=== PATIENT | female | born 1985 | race Caucasian/White ===

== ENCOUNTER 2017-01-31 02:11 | Emergency (ER) | payer OTHER ==
[2017-01-31] MEDS ORDERED: ADENOSINE INJ 6 MG/2 ML SYG IV ONE ×4 (02:23→02:34)
[2017-01-31] MEDS ORDERED: ATROPINE 1 MG/10 ML SYG IV ONE (02:23)
[2017-01-31] MEDS ORDERED: SODIUM CHLORIDE 0.9% 1000ML 1,000 ML ONE (02:26)
[2017-01-31] MEDS ORDERED: MIDAZOLAM INJ 5 MG/5 ML VIAL ONE (02:34)
[2017-01-31] MEDS ORDERED: MIDAZOLAM INJ 5 MG/5 ML VIAL IV ONE (02:36)
[2017-01-31] MEDS ORDERED: SODIUM CHLORIDE 0.9% (FLUSH) 10 ML SYG IV PRN (02:51)
--- NOTE | 2017-01-31 03:05 | ED.PDOC ---
History of Present Illness - General Chief Complaint: Cardiovascular Problem Stated Complaint: irregular heart rate Time Seen by Provider: 01/31/17 02:16 Source: patient, RN notes reviewed, Vital Signs reviewed Exam Limitations: no limitations - History of Present Illness Initial Comments: Patient comes in with palpitation and rapid heart rate. This started @ ~00:30. She felt funny and got sweaty. This has happened before and normally goes away on its own within 30 minutes but this time she laid down for 45 minutes w/o improvement. Heart rate was 240. No chest pain. No SOB. She takes Metoprolol 50mg BID. Timing/Duration: 1-3 hours Severity: severe Activities at Onset: activity - she was at work at the intermediate Prior Chest Pain/Cardiac Workup: other - HX of a. 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 Improving Factors: nothing Worsening Factors: movement Nitro Today/Relief: no nitro taken today Aspirin Treatment Today: no aspirin today Associated Symptoms: diaphoresis, weakness, other - near syncope Allergies/Adverse Reactions: Allergies Sulfa Drugs Adverse Reaction (Intermediate, Verified 01/31/17 02:50) Home Medications: Ambulatory Orders Metoprolol Tartrate 50 mg PO BID 01/31/17 Review of Systems - Review of Systems Constitutional: States: diaphoresis, weakness. Denies: chills, fever EENTM: States: no symptoms reported Respiratory: States: no symptoms reported Cardiology: States: see HPI, palpitations. Denies: chest pain Gastrointestinal/Abdominal: States: no symptoms reported. Denies: nausea Genitourinary: States: no symptoms reported Musculoskeletal: States: no symptoms reported Skin: States: no symptoms reported Neurological: States: no symptoms reported All other Systems: No Change from Baseline Past Medical History (General) - Patient Medical History Hx Congestive Heart Failure: No Hx Diabetes: No - Female History Hx Last Menstrual Period: 08/11/10 Family Medical History - Family History Mother Family History: Unknown Physical Exam - Physical Exam General Appearance: Alert, No apparent distress, Well Developed, Well Groomed, Well Hydrated, Well Nourished Neck: non-tender, full range of motion, supple, normal inspection Respiratory: lungs clear, normal breath sounds, no respiratory distress, no accessory muscle use Cardiovascular/Chest: no murmur, tachycardia Extremity: normal range of motion, non-tender, normal inspection Neurologic: alert, normal mood/affect, oriented x 3 Skin Exam: normal color, warm/dry Progress - Progress Progress: 01/31/17 03:08 Patient with A. Fib with RVR. No response to Adenosine 6mg, No response to Adenosine 12mg. Versed 5mg IV given then syncronized cardioversion with 100J. HR decreased to ~130. Stable in the 120's. Cardizem 5mg IV given w/o change. Another Cardizem 5mg IV given. - Results/Orders Results/Orders: Laboratory Tests 01/31/17 01/31/17 02:40 02:40 WBC 13.7 H RBC 5.43 H Hgb 14.8 Hct 44.1 MCV 81.2 MCH 27.2 MCHC 33.7 RDW 12.4 Plt Count 290 MPV 9.0 Absolute Neuts (auto) 10.70 H Absolute Lymphs (auto) 2.10 Absolute Monos (auto) 0.90 H Absolute Eos (auto) 0.00 Absolute Basos (auto) 0.00 Neutrophils % 77.7 Lymphocytes % 15.0 L Monocytes % 6.8 Eosinophils % 0.1 L Basophils % 0.4 PT 11.2 INR 0.990 PTT (SP) 29.6 D-Dimer, Quantitative < 230 Sodium 141 Potassium 3.7 Chloride 108 Carbon Dioxide 23 Anion Gap 13.7 BUN 10 Creatinine 0.47 L BUN/Creatinine Ratio 21.3 H Random Glucose 122 H Serum Osmolality 281.6 Calcium 10.1 Magnesium 1.8 Total Bilirubin 0.6 Direct Bilirubin 0.1 Indirect Bilirubin 0.5 AST 28 ALT 39 Alkaline Phosphatase 90 Creatine Kinase 59 CK-MB (CK-2) 1.1 CK-MB (CK-2) % Not Reportable Troponin I < 0.02 B-Natriuretic Peptide 47.5 Serum Total Protein 7.6 Albumin 4.4 Globulin Cancelled Albumin/Globulin Ratio Cancelled - EKG/XRAY/CT EKG: Sinus, Fibrillation, RVR Comments: Rate 196 - Additional EKG/XRAY/Consults EKG #2: Sinus, Tachy, no ST T wave changes Comments: Rate 128 after Adenosine 6mg, 12mg and Cardioversion w/ 100J Departure - Departure Clinical Impression: Atrial fibrillation with rapid ventricular response Time of Disposition: 04:15 Disposition: Transfer to Hospital Condition: Fair Departure Forms: ED Discharge - Pt. Copy, Patient Portal Self Enrollment Home Medications: Ambulatory Orders Metoprolol Tartrate 50 mg PO BID 01/31/17 Critical Care Note - Critical Care Note Total Time (mins): 45 Comments: At bedside during treatment for A. Fib with RVR. Transfer to Outside Facility - Transfer Information Accepting Provider:: Dr. Laurie Talavera Accepting Facility: [facility] Reason for Transfer: required specialist not available
[2017-01-31] MEDS ORDERED: SODIUM CHLORIDE 0.9% 1000ML 1,000 ML IVS ONE (03:25)
[2017-01-31 04:15] VITALS: O2SAT 99
[2017-01-31 04:19] VITALS: BP 143/89; TEMP 97.9
--- NOTE | 2017-01-31 06:31 | RAD ---
EXAM: Single view chest. INDICATION: Irregular heartbeat. COMPARISON: Chest x-ray: 11/19/2008. FINDINGS: Cardiac silhouette: Unremarkable. Jenni: Unremarkable. Lobar consolidation: None. Pleural effusion: None. Pneumothorax: None. Other: None. Bones: Unremarkable. Other: None. IMPRESSION: 1. No acute cardiopulmonary process. Electronically signed by: Kwaku Loredo MD 01/31/2017 6:30 AM CDT Workstation: [id number]
== END 2017-01-31 04:55 | disposition short-term general hospital (02) ==
LOC: ER 02:11
DX: I48.91 Unspecified atrial fibrillation (principal); Z88.2 Allergy status to sulfonamides
CPT/HCPCS: 36415; 71010; 80048; 80076; 82550; 82553; 83880; 84484; 85025; 85379; 85610; 85730; 93005; 94760; J0153; J2250; J7030

== ENCOUNTER 2018-02-22 20:20 | Emergency (ER) | payer OTHER ==
--- NOTE | 2018-02-22 22:40 | ED.PDOC ---
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 Timing/Duration: 4-6 hours Severity: moderate Location: other - none Activities at Onset: other - see hpi Allergies/Adverse Reactions: Allergies Sulfa Drugs Adverse Reaction (Intermediate, Verified 01/31/17 02:50) Home Medications: Ambulatory Orders Metoprolol Tartrate 50 mg PO BID 01/31/17 Cymbalta 02/22/18 Geodon 02/22/18 HYDROcodone 5MG/APAP 325MG 02/22/18 Lyrica 02/22/18 Methimazole 5 mg PO TID #60 tab 02/22/18 Methimazole [Methimazole] 02/22/18 Metoprolol Succinate [Metoprolol Succinate ER] 100 mg PO BID #30 tab 02/22/18 Review of Systems - Review of Systems Constitutional: States: no symptoms reported EENTM: States: no symptoms reported Respiratory: States: no symptoms reported Cardiology: States: no symptoms reported Gastrointestinal/Abdominal: States: no symptoms reported Genitourinary: States: no symptoms reported Musculoskeletal: States: no symptoms reported Skin: States: no symptoms reported Neurological: States: no symptoms reported Endocrine: States: no symptoms reported Past Medical History (General) - Patient Medical History Hx Seizures: No Hx Stroke: No Hx Dementia: No Hx Asthma: No Hx of COPD: No Hx Cardiac Disorders: Yes Hx Congestive Heart Failure: No Hx Pacemaker: No Hx Hypertension: Yes Hx Thyroid Disease: Yes - hyperthyroidism Hx Diabetes: No Hx Gastroesophageal Reflux: No Hx Renal Disease: No Hx Cancer: No Hx of HIV: No Hx Hepatitis C: No Hx MRSA: No Surgical History: cholecystectomy - Vaccination History Hx Tetanus, Diphtheria Vaccination: Yes Hx Influenza Vaccination: Yes Hx Pneumococcal Vaccination: No - Social History Hx Tobacco Use: No Hx Chewing Tobacco Use: No Hx Alcohol Use: No Hx Substance Use: No Hx Substance Use Treatment: No Hx Depression: No Hx Physical Abuse: No Hx Emotional Abuse: No Hx Suspected Abuse: No - Female History Patient is a Female of Child Bearing Age (10 -59 yrs old): Yes Hx Last Menstrual Period: 08/11/10 Patient : No - Triage Comment ED Triage Comment: Out of meds for a week. Took metoprolol this afternoon, restarted. Family Medical History - Family History Mother Family History: Unknown Hx Family Hypertension: Yes - parents Physical Exam - Physical Exam General Appearance: Alert, Comfortable, No apparent distress Eyes, Ears, Nose, Throat Exam: normal ENT inspection, other - no exopthalmos Neck: non-tender, supple, thyromegaly - right thyroid gland Respiratory: lungs clear, normal breath sounds, no respiratory distress Cardiovascular/Chest: normal peripheral pulses, regular rate, rhythm, no murmur Peripheral Pulses: radial,right: 2+, radial,left: 2+ Gastrointestinal/Abdominal: non tender, soft Extremity: no pedal edema, no calf tenderness Neurologic: alert, oriented x 3 Skin Exam: normal color, warm/dry Lymphatic: no adenopathy Progress - Progress Progress: 02/22/18 23:03 Vital Signs - 8 hr 02/22/18 20:36 Temperature 98.9 F Pulse Rate [ 98 H Right] Respiratory 16 Rate Blood Pressure 149/99 [Left Arm] O2 Sat by Pulse 98 Oximetry Departure - Departure Clinical Impression: Rebound hypertension, Medication refill Hypertension Qualifiers: Hypertension type: unspecified Qualified Code(s): I10 - Essential (primary) hypertension Time of Disposition: 23:04 Disposition: Discharge to Home or Self Care Condition: Fair Departure Forms: ED Discharge - Pt. Copy, Patient Portal Self Enrollment Instructions: DI for High Blood Pressure, DASH Diet, Hyperthyroidism ( Overactive Thyroid), Thyroid Nodules, Hyperthyroidism (Overactive Thyroid) (DC) Prescriptions: Methimazole 5 mg PO TID #60 tab Metoprolol Succinate [Metoprolol Succinate ER] 100 mg PO BID #30 tab Home Medications: Ambulatory Orders Metoprolol Tartrate 50 mg PO BID 01/31/17 Cymbalta 02/22/18 Geodon 02/22/18 HYDROcodone 5MG/APAP 325MG 09/11/18 Lyrica 02/22/18 Methimazole 5 mg PO TID #60 tab 02/22/18 Methimazole [Methimazole] 02/22/18 Metoprolol Succinate [Metoprolol Succinate ER] 100 mg PO BID #30 tab 02/22/18 Additional Instructions: Make appointment with primary Md;Dont let your prescription medication ran out
[2018-02-22 23:45] VITALS: BP 143/86; TEMP 97.4; O2SAT 99
== END 2018-02-22 23:35 | disposition home or self-care (01) ==
LOC: ER 20:20
DX: Z76.0 Encounter for issue of repeat prescription (principal); I10 Essential (primary) hypertension; E05.90 Thyrotoxicosis, unspecified without thyrotoxic crisis or storm; Z79.899 Other long term (current) drug therapy; Z88.2 Allergy status to sulfonamides

== ENCOUNTER 2018-05-13 16:50 | Emergency (ER) | payer OTHER ==
[2018-05-13 17:07] VITALS: TEMP 97.4
--- NOTE | 2018-05-13 17:36 | ED.PDOC ---
History of Present Illness - General Chief Complaint: General Stated Complaint: drowsy Time Seen by Provider: 05/13/18 17:33 Source: patient Exam Limitations: no limitations - History of Present Illness Initial Comments: PT WAS PULLED OVER BY PD. APPARENTLY WAS SENT HOME FROM WORK B/C SHE WASNT ACTING NORMALLY. PD NOTICED PT WAS DRIVING IRREGULARLY AND PULLED HER OVER. SHE WAS TRANSPORTED HERE FOR EVALUATION. SHE STATES SHE HAS NOT TAKEN ANY EXTRA MEDICATION BUT C/O NOT FEELING WELL. VERY NON SPECIFIC COMPLAINTS. Timing/Duration: other - TODAY Severity: moderate Improving Factors: nothing Worsening Factors: nothing Associated Symptoms: denies symptoms Allergies/Adverse Reactions: Allergies Sulfa Drugs Adverse Reaction (Intermediate, Verified 01/31/17 02:50) Home Medications: Ambulatory Orders Duloxetine HCl 60 mg PO BID 02/22/18 HYDROcodone 10MG/APAP 325MG [[place] 10/325] 1 ea PO Q6HR PRN 02/22/18 Metoprolol Succinate [Metoprolol Succinate ER] 100 mg PO BID #30 tab 02/22/18 Pregabalin [Lyrica] 100 mg PO TID 02/22/18 Ziprasidone HCl 40 mg PO BID 02/22/18 Alprazolam [Xanax] 1 mg PO BID PRN 05/13/18 Baclofen 10 mg PO BID PRN 05/13/18 Cephalexin 500 mg PO QID 05/13/18 Cholecalciferol [Vitamin D-3] 5,000 unit PO DAILY 05/13/18 Cyclobenzaprine HCl 10 mg PO BID PRN 05/13/18 Furosemide 40 mg PO DAILY 05/13/18 Levothyroxine Sodium 150 mcg PO DAILY 05/13/18 Naproxen Sodium 440 mg PO Q12H PRN 05/13/18 Omeprazole 20 mg PO DAILY 05/13/18 Potassium Chloride [Micro-K] 10 meq PO TID 05/13/18 Promethazine HCl 25 mg PO Q8HR PRN 05/13/18 Spironolactone 25 mg PO DAILY 05/13/18 Sumatriptan Succinate 50 mg PO DAILY PRN 05/13/18 Triamterene & Hydrochlorothiaz [Triamterene/Hydrochloroth 37.5-25 mg] 1 ea PO DAILY 05/13/18 diphenhydrAMINE HCL [Benadryl] 25 mg PO Q6H PRN 05/13/18 tiZANidine [Zanaflex] 4 mg PO BEDTIME 05/13/18 Review of Systems - Review of Systems Constitutional: Denies: chills, fever EENTM: States: no symptoms reported Respiratory: Denies: cough, short of breath, wheezing Cardiology: Denies: chest pain, palpitations Gastrointestinal/Abdominal: Denies: abdominal pain, nausea, vomiting Genitourinary: Denies: dysuria, frequency, hematuria Musculoskeletal: States: no symptoms reported Skin: States: no symptoms reported Neurological: States: no symptoms reported Hematologic/Lymphatic: States: no symptoms reported Past Medical History (General) - Patient Medical History Hx Seizures: No Hx Stroke: No Hx Dementia: No Hx Asthma: No Hx of COPD: No Hx Cardiac Disorders: Yes Hx Congestive Heart Failure: No Hx Pacemaker: No Hx Hypertension: Yes Hx Thyroid Disease: Yes - hyperthyroidism Hx Diabetes: No Hx Gastroesophageal Reflux: No Hx Renal Disease: No Hx Cancer: No Hx of HIV: No Hx Hepatitis C: No Hx MRSA: No Hx Other PMH: Yes - BIPOLAR D/O Surgical History: cholecystectomy, other - Vaccination History Hx Tetanus, Diphtheria Vaccination: Yes Hx Influenza Vaccination: Yes Hx Pneumococcal Vaccination: No - Social History Hx Tobacco Use: No Hx Chewing Tobacco Use: No Hx Alcohol Use: No Hx Substance Use: No Hx Substance Use Treatment: No Hx Depression: No Hx Physical Abuse: No Hx Emotional Abuse: No Hx Suspected Abuse: No - Female History Hx Last Menstrual Period: 08/11/10 Patient : No Family Medical History - Family History Mother Family History: Unknown Hx Family Hypertension: Yes - parents Physical Exam - Physical Exam General Appearance: Alert, No apparent distress, Obese Eye Exam: bilateral normal Ears, Nose, Throat: hearing grossly normal, normal ENT inspection Neck: non-tender, full range of motion, supple Respiratory: lungs clear, no respiratory distress Cardiovascular/Chest: regular rate, rhythm, no murmur Gastrointestinal/Abdominal: non tender, soft, no organomegaly Back Exam: normal inspection, no CVA tenderness Extremity: normal range of motion, non-tender Neurologic: no motor/sensory deficits, other - SPEECH THICK SOMEWHAT SLURRED, BUT ORGANIZED Skin Exam: normal color, warm/dry Lymphatic: no adenopathy Progress - Progress Progress: 05/13/18 18:55 SLEEPING, NAD, VSS. D/W PT FEEL IS A MEDICATION ISSUE AND SHE NEEDS TO DISCUSS WITH HER DR. SHE AGREES. SHE IS ALERT AND AWAKENS EASILY. Departure - Departure Clinical Impression: Medication care plan discussed with patient, Bipolar 1 disorder, Anxiety Time of Disposition: 19:00 Disposition: Discharge to Home or Self Care Condition: Good Departure Forms: ED Discharge - Pt. Copy, Patient Portal Self Enrollment Instructions: Side Effects From Medicines, Taking Narcotics Safely Home Medications: Ambulatory Orders Duloxetine HCl 60 mg PO BID 02/22/18 HYDROcodone 10MG/APAP 325MG [[place] 10/325] 1 ea PO Q6HR PRN 02/22/18 Metoprolol Succinate [Metoprolol Succinate ER] 100 mg PO BID #30 tab 02/22/18 Pregabalin [Lyrica] 100 mg PO TID 02/22/18 Ziprasidone HCl 40 mg PO BID 02/22/18 Alprazolam [Xanax] 1 mg PO BID PRN 05/13/18 Baclofen 10 mg PO BID PRN 05/13/18 Cephalexin 500 mg PO QID 05/13/18 Cholecalciferol [Vitamin D-3] 5,000 unit PO DAILY 05/13/18 Cyclobenzaprine HCl 10 mg PO BID PRN 05/13/18 Furosemide 40 mg PO DAILY 05/13/18 Levothyroxine Sodium 150 mcg PO DAILY 05/13/18 Naproxen Sodium 440 mg PO Q12H PRN 05/13/18 Omeprazole 20 mg PO DAILY 05/13/18 Potassium Chloride [Micro-K] 10 meq PO TID 05/13/18 Promethazine HCl 25 mg PO Q8HR PRN 05/13/18 Spironolactone 25 mg PO DAILY 05/13/18 Sumatriptan Succinate 50 mg PO DAILY PRN 05/13/18 Triamterene & Hydrochlorothiaz [Triamterene/Hydrochloroth 37.5-25 mg] 1 ea PO DAILY 05/13/18 diphenhydrAMINE HCL [Benadryl] 25 mg PO Q6H PRN 05/13/18 tiZANidine [Zanaflex] 4 mg PO BEDTIME 05/13/18
--- NOTE | 2018-05-13 18:11 | CT ---
PROCEDURE: CT Head Without Intravenous Contrast CLINICAL INDICATION: The patient is 32 years old and is Female; ALTERED SENSORIUM TECHNIQUE: Axial computed tomography images of the head/brain without intravenous contrast. Sagittal and coronal reformatted images were created and reviewed. COMPARISON: No relevant prior studies available. FINDINGS: BRAIN: Low lying cerebral tonsils by approximately 7 mm consistent with Chiari I malformation. No mass lesion. No hemorrhage. No significant white matter disease. VENTRICLES: Normal. No ventriculomegaly. BONES/JOINTS: Normal. No acute fracture. SOFT TISSUES: Normal. SINUSES: Minimal mucosal thickening left frontal sinus. MASTOID AIR CELLS: Unremarkable as visualized. No mastoid effusion. IMPRESSION: 1. No acute intracranial findings. 2. Low lying cerebral tonsils by approximately 7 mm consistent with Chiari I malformation. MRI may be obtained for further evaluation. Electronically signed by: Adalberto Pandey MD 05/13/2018 6:10 PM [facility]
[2018-05-13] MEDS: SODIUM CHLORIDE 0.9% 500ML 500 ML IVS ONE (18:44)
[2018-05-13 19:52] VITALS: BP 135/100; O2SAT 98
== END 2018-05-13 19:52 | disposition home or self-care (01) ==
LOC: ER 16:50
DX: F31.9 Bipolar disorder, unspecified (principal); F41.9 Anxiety disorder, unspecified; E05.90 Thyrotoxicosis, unspecified without thyrotoxic crisis or storm; Z79.899 Other long term (current) drug therapy; Z88.2 Allergy status to sulfonamides
CPT/HCPCS: 36415; 70450; 80053; 80307; 81001; 85025; J7040

== ENCOUNTER 2018-05-22 02:43 | Emergency (ER) | payer SELFPAY ==
[2018-05-22 02:58] VITALS: BP 124/84; TEMP 96.5; O2SAT 97
--- NOTE | 2018-05-22 03:07 | ED.PDOC ---
History of Present Illness - General Chief Complaint: Blood Pressure Problem Stated Complaint: elevated BP,tired Time Seen by Provider: 05/22/18 03:04 Source: patient Exam Limitations: no limitations - History of Present Illness Initial Comments: patient comes in today for elevation of blood pressure. Patient is [employer] and she states that when she is active she starts to feel "wobbly". They checked her pressure at work and it was 159/110. Patient currently has no chest pain, shortneeath, nausea, or vision change. She has known high blood pressure and takes metoprolol for it. She took an extra one this morning. Currently she is asymptomatic. Timing/Duration: 24 hours Severity: mild Improving Factors: rest Worsening Factors: movement Associated Symptoms: denies symptoms Allergies/Adverse Reactions: Allergies Sulfa Drugs Adverse Reaction (Intermediate, Verified 01/31/17 02:50) Home Medications: Ambulatory Orders Duloxetine HCl 60 mg PO BID 02/22/18 HYDROcodone 10MG/APAP 325MG [[place] 10/325] 1 ea PO Q6HR PRN 02/22/18 Metoprolol Succinate [Metoprolol Succinate ER] 100 mg PO BID #30 tab 02/22/18 Pregabalin [Lyrica] 100 mg PO TID 02/22/18 Ziprasidone HCl 40 mg PO BID 02/22/18 Alprazolam [Xanax] 1 mg PO BID PRN 05/13/18 Baclofen 10 mg PO BID PRN 05/13/18 Cephalexin 500 mg PO QID 05/13/18 Cholecalciferol [Vitamin D-3] 5,000 unit PO DAILY 05/13/18 Cyclobenzaprine HCl 10 mg PO BID PRN 05/13/18 Furosemide 40 mg PO DAILY 05/13/18 Levothyroxine Sodium 150 mcg PO DAILY 05/13/18 Naproxen Sodium 440 mg PO Q12H PRN 05/13/18 Omeprazole 20 mg PO DAILY 05/13/18 Potassium Chloride [Micro-K] 10 meq PO TID 05/13/18 Promethazine HCl 25 mg PO Q8HR PRN 05/13/18 Spironolactone 25 mg PO DAILY 05/13/18 Sumatriptan Succinate 50 mg PO DAILY PRN 05/13/18 Triamterene & Hydrochlorothiaz [Triamterene/Hydrochloroth 37.5-25 mg] 1 ea PO DAILY 05/13/18 diphenhydrAMINE HCL [Benadryl] 25 mg PO Q6H PRN 05/13/18 tiZANidine [Zanaflex] 4 mg PO BEDTIME 05/13/18 Review of Systems - Review of Systems Constitutional: States: no symptoms reported. Denies: chills, fever EENTM: States: no symptoms reported. Denies: blurred vision Respiratory: States: no symptoms reported. Denies: cough, short of breath Cardiology: States: no symptoms reported. Denies: chest pain, edema, palpitations Gastrointestinal/Abdominal: States: no symptoms reported. Denies: abdominal pain, nausea, vomiting Past Medical History (General) - Patient Medical History Hx Seizures: No Hx Stroke: No Hx Dementia: No Hx Asthma: No Hx of COPD: No Hx Cardiac Disorders: Yes Hx Congestive Heart Failure: No Hx Pacemaker: No Hx Hypertension: Yes Hx Thyroid Disease: Yes - hyperthyroidism Hx Diabetes: No Hx Gastroesophageal Reflux: No Hx Renal Disease: No Hx Cancer: No Hx of HIV: No Hx Hepatitis C: No Hx MRSA: No - Vaccination History Hx Tetanus, Diphtheria Vaccination: Yes Hx Influenza Vaccination: Yes Hx Pneumococcal Vaccination: No - Social History Hx Tobacco Use: No Hx Chewing Tobacco Use: No Hx Alcohol Use: No Hx Substance Use: No Hx Substance Use Treatment: No Hx Depression: No Hx Physical Abuse: No Hx Emotional Abuse: No Hx Suspected Abuse: No - Female History Patient is a Female of Child Bearing Age (10 -59 yrs old): Yes Hx Last Menstrual Period: 08/11/10 Patient : No Family Medical History - Family History Mother Family History: Unknown Hx Family Hypertension: Yes - parents Physical Exam - Physical Exam General Appearance: Alert, No apparent distress Eye Exam: bilateral normal Ears, Nose, Throat: hearing grossly normal, normal ENT inspection, normal pharynx Neck: non-tender, full range of motion, supple, normal inspection Respiratory: chest non-tender, lungs clear, normal breath sounds, no respiratory distress Cardiovascular/Chest: normal peripheral pulses, regular rate, rhythm, no edema, no murmur Gastrointestinal/Abdominal: normal bowel sounds, non tender, soft Neurologic: no motor/sensory deficits, alert, oriented x 3 Progress - Progress Progress: 05/22/18 03:08 patient currently has normal blood pressure and is asymptomatic. Will give her a work excuse for today and tomorrow. She is to follow up with PCP to discuss labile blood pressure on Wednesday. Return to ER for chest pain, vision change, BP >180 syst or >100 diastolic or high blood pressure with symptoms. Departure - Departure Clinical Impression: Intermittent hypertension Disposition: Discharge to Home or Self Care Condition: Good Departure Forms: ED Discharge - Pt. Copy, Patient Portal Self Enrollment Referrals: TISH STEPHENS [Primary Care Provider] - 1-2 Weeks Home Medications: Ambulatory Orders Duloxetine HCl 60 mg PO BID 02/22/18 HYDROcodone 10MG/APAP 325MG [[place] ] 1 ea PO Q6HR PRN 02/22/18 Metoprolol Succinate [Metoprolol Succinate ER] 100 mg PO BID #30 tab 02/22/18 Pregabalin [Lyrica] 100 mg PO TID 02/22/18 Ziprasidone HCl 40 mg PO BID 02/22/18 Alprazolam [Xanax] 1 mg PO BID PRN 05/13/18 Baclofen 10 mg PO BID PRN 05/13/18 Cephalexin 500 mg PO QID 05/13/18 Cholecalciferol [Vitamin D-3] 5,000 unit PO DAILY 05/13/18 Cyclobenzaprine HCl 10 mg PO BID PRN 05/13/18 Furosemide 40 mg PO DAILY 05/13/18 Levothyroxine Sodium 150 mcg PO DAILY 05/13/18 Naproxen Sodium 440 mg PO Q12H PRN 05/13/18 Omeprazole 20 mg PO DAILY 05/13/18 Potassium Chloride [Micro-K] 10 meq PO TID 05/13/18 Promethazine HCl 25 mg PO Q8HR PRN 05/13/18 Spironolactone 25 mg PO DAILY 05/13/18 Sumatriptan Succinate 50 mg PO DAILY PRN 05/13/18 Triamterene & Hydrochlorothiaz [Triamterene/Hydrochloroth 37.5-25 mg] 1 ea PO DAILY 05/13/18 diphenhydrAMINE HCL [Benadryl] 25 mg PO Q6H PRN 05/13/18 tiZANidine [Zanaflex] 4 mg PO BEDTIME 05/13/18 Additional Instructions: work excuse for today and tomorrow. She is to follow up with PCP to discuss labile blood pressure on Wednesday. Return to ER for chest pain, vision change, BP >180 syst or >100 diastolic or high blood pressure with symptoms.
== END 2018-05-22 03:19 | disposition home or self-care (01) ==
LOC: ER 02:43
DX: I10 Essential (primary) hypertension (principal); I51.9 Heart disease, unspecified; E05.90 Thyrotoxicosis, unspecified without thyrotoxic crisis or storm; Z88.2 Allergy status to sulfonamides; Z79.899 Other long term (current) drug therapy

== ENCOUNTER 2018-06-05 20:36 | Emergency (ER) | payer SELFPAY ==
[2018-06-05 20:51] VITALS: TEMP 98.1; O2SAT 99
--- NOTE | 2018-06-05 21:13 | ED.PDOC ---
History of Present Illness - General Chief Complaint: Blood Pressure Problem Stated Complaint: elevated blood pressure Time Seen by Provider: 06/05/18 20:44 Source: patient Exam Limitations: no limitations - History of Present Illness Initial Comments: Corinna Phan 32 y/o female stated took her blood pressure at work and BP systolic 105's was advised to come here and get checked.Stated she took her anihypertensive medication one hour prior to coming here.No headache,no blurry vision,no chest pains Timing/Duration: 1-3 hours Severity: moderate Improving Factors: nothing Worsening Factors: nothing Associated Symptoms: denies symptoms Allergies/Adverse Reactions: Allergies Sulfa Drugs Adverse Reaction (Intermediate, Verified 01/31/17 02:50) Home Medications: Ambulatory Orders Duloxetine HCl 60 mg PO BID 02/22/18 HYDROcodone 10MG/APAP 325MG [[place] 10325] 1 ea PO Q6HR PRN 02/22/18 Metoprolol Succinate [Metoprolol Succinate ER] 100 mg PO BID #30 tab 02/22/18 Pregabalin [Lyrica] 100 mg PO TID 02/22/18 Ziprasidone HCl 40 mg PO BID 02/22/18 Alprazolam [Xanax] 1 mg PO BID PRN 05/13/18 Baclofen 10 mg PO BID PRN 05/13/18 Cholecalciferol [Vitamin D-3] 5,000 unit PO DAILY 05/13/18 Cyclobenzaprine HCl 10 mg PO BID PRN 05/13/18 Furosemide 40 mg PO DAILY 05/13/18 Levothyroxine Sodium 150 mcg PO DAILY 05/13/18 Naproxen Sodium 440 mg PO Q12H PRN 05/13/18 Omeprazole 20 mg PO DAILY 05/13/18 Potassium Chloride [Micro-K] 10 meq PO TID 05/13/18 Promethazine HCl 25 mg PO Q8HR PRN 05/13/18 Spironolactone 25 mg PO DAILY 05/13/18 Sumatriptan Succinate 50 mg PO DAILY PRN 05/13/18 diphenhydrAMINE HCL [Benadryl] 25 mg PO Q6H PRN 05/13/18 tiZANidine [Zanaflex] 4 mg PO BEDTIME 05/13/18 Review of Systems - Review of Systems Constitutional: States: no symptoms reported EENTM: States: no symptoms reported Respiratory: States: no symptoms reported Cardiology: States: no symptoms reported Gastrointestinal/Abdominal: States: no symptoms reported Genitourinary: States: no symptoms reported Musculoskeletal: States: no symptoms reported Skin: States: no symptoms reported Neurological: States: no symptoms reported Past Medical History (General) - Patient Medical History Hx Seizures: No Hx Stroke: No Hx Dementia: No Hx Asthma: No Hx of COPD: No Hx Cardiac Disorders: Yes Hx Congestive Heart Failure: No Hx Pacemaker: No Hx Hypertension: Yes Hx Thyroid Disease: Yes Hx Diabetes: No Hx Gastroesophageal Reflux: No Hx Renal Disease: No Hx Cancer: No Hx of HIV: No Hx Hepatitis C: No Hx MRSA: No Surgical History: cholecystectomy - Vaccination History Hx Tetanus, Diphtheria Vaccination: Yes Hx Influenza Vaccination: Yes Hx Pneumococcal Vaccination: No - Social History Hx Tobacco Use: No Hx Chewing Tobacco Use: No Hx Alcohol Use: No Hx Substance Use: No Hx Substance Use Treatment: No Hx Depression: No Hx Physical Abuse: No Hx Emotional Abuse: No Hx Suspected Abuse: No - Activities of Daily Living Patient Lives Alone: No - Female History Patient is a Female of Child Bearing Age (10 -59 yrs old): Yes Hx Last Menstrual Period: 05/20/18 Patient : No Family Medical History - Family History Mother Family History: Unknown Hx Family Hypertension: Yes - parents Physical Exam - Physical Exam General Appearance: Alert, Comfortable, No apparent distress Eye Exam: bilateral normal Ears, Nose, Throat: hearing grossly normal, normal ENT inspection Neck: non-tender, normal inspection Respiratory: chest non-tender, lungs clear, normal breath sounds Cardiovascular/Chest: normal peripheral pulses, regular rate, rhythm, no murmur Peripheral Pulses: radial,right: 2+, radial,left: 2+ Gastrointestinal/Abdominal: non tender, soft Back Exam: no CVA tenderness, no vertebral tenderness Extremity: no pedal edema, no calf tenderness Neurologic: alert, oriented x 3 Skin Exam: normal color, warm/dry Progress - Progress Progress: 06/05/18 21:17 Vital Signs - 24 hr 06/05/18 20:47 Temperature 98.1 F Pulse Rate [ 90 Right] Respiratory 18 Rate Blood Pressure 158/106 [Left Arm] O2 Sat by Pulse 99 Oximetry Blood pressure re checked BP-127/79,Sao2-99 %;Hr 91 Departure - Departure Clinical Impression: Hypertension Qualifiers: Hypertension type: unspecified Qualified Code(s): I10 - Essential (primary) hypertension Time of Disposition: 21:19 Disposition: Discharge to Home or Self Care Condition: Fair Departure Forms: ED Discharge - Pt. Copy, Patient Portal Self Enrollment Instructions: DI for High Blood Pressure, DASH Diet Referrals: TISH STEPHENS [Primary Care Provider] - 1-2 Weeks Home Medications: Ambulatory Orders Duloxetine HCl 60 mg PO BID 02/22/18 HYDROcodone 10MG/APAP 325MG [[place] 10/325] 1 ea PO Q6HR PRN 02/22/18 Metoprolol Succinate [Metoprolol Succinate ER] 100 mg PO BID #30 tab 02/22/18 Pregabalin [Lyrica] 100 mg PO TID 02/22/18 Ziprasidone HCl 40 mg PO BID 02/22/18 Alprazolam [Xanax] 1 mg PO BID PRN 05/13/18 Baclofen 10 mg PO BID PRN 05/13/18 Cholecalciferol [Vitamin D-3] 5,000 unit PO DAILY 05/13/18 Cyclobenzaprine HCl 10 mg PO BID PRN 05/13/18 Furosemide 40 mg PO DAILY 05/13/18 Levothyroxine Sodium 150 mcg PO DAILY 05/13/18 Naproxen Sodium 440 mg PO Q12H PRN 05/13/18 Omeprazole 20 mg PO DAILY 05/13/18 Potassium Chloride [Micro-K] 10 meq PO TID 05/13/18 Promethazine HCl 25 mg PO Q8HR PRN 05/13/18 Spironolactone 25 mg PO DAILY 05/13/18 Sumatriptan Succinate 50 mg PO DAILY PRN 05/13/18 diphenhydrAMINE HCL [Benadryl] 25 mg PO Q6H PRN 05/13/18 tiZANidine [Zanaflex] 4 mg PO BEDTIME 05/13/18 Additional Instructions: Follow up with primary Md 08 Jun 2018 as needed
[2018-06-05 21:28] VITALS: BP 127/79
== END 2018-06-05 21:29 | disposition home or self-care (01) ==
LOC: ER 20:36
DX: I10 Essential (primary) hypertension (principal); E07.9 Disorder of thyroid, unspecified; I51.9 Heart disease, unspecified; Z79.899 Other long term (current) drug therapy; Z88.2 Allergy status to sulfonamides

== ENCOUNTER 2018-09-10 18:55 | Emergency (ER) | payer SELFPAY ==
[2018-09-10] MEDS ORDERED: SODIUM CHLORIDE 0.9% 500ML 500 ML IVS ONE (19:10)
--- NOTE | 2018-09-10 19:11 | ED.PDOC ---
History of Present Illness - General Chief Complaint: Blood Pressure Problem Stated Complaint: low blood pressure,nasal congestion Time Seen by Provider: 09/10/18 19:09 Source: patient Exam Limitations: no limitations - History of Present Illness Initial Comments: Corinna Phan 32 y/o female came to ER stating her blood pressure had been low BP110 /70 after it was checked at worked and also felt lightheaded no blurry vision,no chest pains or headache.Also has nasal congestion taking Tiffani.Had been under lots of stress recently also with child custody problem with ex husb and.She take Metoprolol XL for her HBP. Timing/Duration: 1-3 hours Severity: moderate Improving Factors: nothing Worsening Factors: nothing Associated Symptoms: denies symptoms, other - see hpi Allergies/Adverse Reactions: Allergies Sulfa Drugs Adverse Reaction (Intermediate, Verified 01/31/17 02:50) Home Medications: Ambulatory Orders Duloxetine HCl 60 mg PO BID 02/22/18 HYDROcodone 10MG/APAP 325MG [[place] 10/325] 1 ea PO Q6HR PRN 02/22/18 Metoprolol Succinate [Metoprolol Succinate ER] 100 mg PO BID #30 tab 02/22/18 Pregabalin [Lyrica] 100 mg PO TID 02/22/18 Ziprasidone HCl 40 mg PO BID 02/22/18 Alprazolam [Xanax] 1 mg PO BID PRN 05/13/18 Baclofen 10 mg PO BID PRN 05/13/18 Cholecalciferol [Vitamin D-3] 5,000 unit PO DAILY 05/13/18 Cyclobenzaprine HCl [Cyclobenzaprine Hydrochlo] 10 mg PO BID PRN 05/13/18 Furosemide 40 mg PO DAILY 05/13/18 Levothyroxine Sodium 150 mcg PO DAILY 05/13/18 Naproxen Sodium 440 mg PO Q12H PRN 05/13/18 Omeprazole 20 mg PO DAILY 05/13/18 Potassium Chloride [Micro-K] 10 meq PO TID 05/13/18 Promethazine HCl 25 mg PO Q8HR PRN 05/13/18 Spironolactone 25 mg PO DAILY 05/13/18 Sumatriptan Succinate 50 mg PO DAILY PRN 05/13/18 diphenhydrAMINE HCL [Benadryl] 25 mg PO Q6H PRN 05/13/18 tiZANidine [Zanaflex] 4 mg PO BEDTIME 05/13/18 Review of Systems - Review of Systems Constitutional: States: no symptoms reported EENTM: States: no symptoms reported Respiratory: States: no symptoms reported Cardiology: States: no symptoms reported Gastrointestinal/Abdominal: States: no symptoms reported Genitourinary: States: no symptoms reported Musculoskeletal: States: no symptoms reported Skin: States: no symptoms reported Neurological: States: no symptoms reported Endocrine: States: no symptoms reported All other Systems: Reviewed and Negative, No Change from Baseline Past Medical History (General) - Patient Medical History Hx Seizures: No Hx Stroke: No Hx Dementia: No Hx Asthma: No Hx of COPD: No Hx Cardiac Disorders: Yes Hx Congestive Heart Failure: No Hx Pacemaker: No Hx Hypertension: Yes Hx Thyroid Disease: Yes Hx Diabetes: No Hx Gastroesophageal Reflux: No Hx Renal Disease: No Hx Cancer: No Hx of HIV: No Hx Hepatitis C: No Hx MRSA: No - Vaccination History Hx Tetanus, Diphtheria Vaccination: Yes Hx Influenza Vaccination: Yes Hx Pneumococcal Vaccination: No - Social History Hx Tobacco Use: No Hx Chewing Tobacco Use: No Hx Alcohol Use: No Hx Substance Use: No Hx Substance Use Treatment: No Hx Depression: No Hx Physical Abuse: No Hx Emotional Abuse: No Hx Suspected Abuse: No - Female History Hx Last Menstrual Period: 05/20/18 Patient : No Family Medical History - Family History Mother Family History: Unknown Hx Family Hypertension: Yes - parents Physical Exam - Physical Exam General Appearance: Alert, Comfortable, No apparent distress Eye Exam: bilateral normal Ears, Nose, Throat: hearing grossly normal, normal ENT inspection Neck: non-tender, full range of motion, supple, normal inspection Respiratory: chest non-tender, lungs clear, normal breath sounds Cardiovascular/Chest: normal peripheral pulses, regular rate, rhythm, no murmur Peripheral Pulses: radial,right: 2+, radial,left: 2+ Gastrointestinal/Abdominal: normal bowel sounds, non tender, soft, no organomegaly Back Exam: no CVA tenderness, no vertebral tenderness Extremity: no pedal edema, no calf tenderness Neurologic: alert, oriented x 3 Skin Exam: normal color, warm/dry Lymphatic: no adenopathy Progress - Progress Progress: 09/10/18 19:30 Vital Signs - 8 hr 09/10/18 19:00 Temperature 98.6 F Pulse Rate [ 88 monitor] Respiratory 20 Rate Blood Pressure 159/111 [Left Arm] O2 Sat by Pulse 98 Oximetry Standing BP-156/99 Departure - Departure Clinical Impression: Blood pressure instability, Nasal congestion, Situational anxiety Time of Disposition: 19:31 Disposition: Discharge to Home or Self Care Condition: Fair Departure Forms: ED Discharge - Pt. Copy, Patient Portal Self Enrollment Instructions: DI for High Blood Pressure, DASH Diet, How to Do a Nasal Rinse Referrals: TISH STEPHENS [Primary Care Provider] - 1-2 Weeks Home Medications: Ambulatory Orders Duloxetine HCl 60 mg PO BID 02/22/18 HYDROcodone 10MG/APAP 325MG [[place] 10/325] 1 ea PO Q6HR PRN 02/22/18 Metoprolol Succinate [Metoprolol Succinate ER] 100 mg PO BID #30 tab 02/22/18 Pregabalin [Lyrica] 100 mg PO TID 02/22/18 Ziprasidone HCl 40 mg PO BID 02/22/18 Alprazolam [Xanax] 1 mg PO BID PRN 05/13/18 Baclofen 10 mg PO BID PRN 05/13/18 Cholecalciferol [Vitamin D-3] 5,000 unit PO DAILY 05/13/18 Cyclobenzaprine HCl [Cyclobenzaprine Hydrochlo] 10 mg PO BID PRN 05/13/18 Furosemide 40 mg PO DAILY 05/13/18 Levothyroxine Sodium 150 mcg PO DAILY 05/13/18 Naproxen Sodium 440 mg PO Q12H PRN 05/13/18 Omeprazole 20 mg PO DAILY 05/13/18 Potassium Chloride [Micro-K] 10 meq PO TID 05/13/18 Promethazine HCl 25 mg PO Q8HR PRN 05/13/18 Spironolactone 25 mg PO DAILY 05/13/18 Sumatriptan Succinate 50 mg PO DAILY PRN 05/13/18 diphenhydrAMINE HCL [Benadryl] 25 mg PO Q6H PRN 05/13/18 tiZANidine [Zanaflex] 4 mg PO BEDTIME 05/13/18 Additional Instructions: Continue with all home meds;Return to ER as needed;Follow up with primary Md for recheck 14 September 2018
[2018-09-10 19:16] VITALS: TEMP 98.6; O2SAT 98
[2018-09-10 19:34] VITALS: BP 139/71
== END 2018-09-10 19:40 | disposition home or self-care (01) ==
LOC: ER 18:55
DX: I95.9 Hypotension, unspecified (principal); R09.81 Nasal congestion; F41.8 Other specified anxiety disorders; I10 Essential (primary) hypertension; E07.9 Disorder of thyroid, unspecified; I51.9 Heart disease, unspecified; Z79.899 Other long term (current) drug therapy; Z88.2 Allergy status to sulfonamides

== ENCOUNTER 2020-04-17 22:51 | Emergency (ER) | payer SELFPAY ==
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
[2020-04-17 23:43] VITALS: TEMP 97.4; O2SAT 98
[2020-04-18 02:16] VITALS: BP 138/98
== END 2020-04-18 00:01 ==
LOC: ER 22:51
DX: Z02.89 Encounter for other administrative examinations (principal); R10.9 Unspecified abdominal pain; I51.9 Heart disease, unspecified; E07.9 Disorder of thyroid, unspecified; I10 Essential (primary) hypertension; Z88.2 Allergy status to sulfonamides; Z79.899 Other long term (current) drug therapy; V40.1XXA Car passenger injured in collision with pedestrian or animal in nontraffic accident, initial encounter; Y92.410 Unspecified street and highway as the place of occurrence of the external cause

== ENCOUNTER 2020-04-24 19:57 | Emergency (ER) | payer OTHER ==
[2020-04-24] MEDS ORDERED: SODIUM CHLORIDE 0.9% (FLUSH) 10 ML SYG IV PRN (20:23)
--- NOTE | 2020-04-24 20:28 | ED.PDOC ---
History of Present Illness - General Chief Complaint: [employer] Problem Stated Complaint: preg twins, lost mucus plug contractions Time Seen by Provider: 04/24/20 20:10 - History of Present Illness Initial Comments: F comes in with the c/c of "I have tubal twin ". States she has a twin on each side of her tubes, thinks she is about 35 wks . Notice some vaginal bleeding that started today so came in for evaluation. States she also has come cramping. no n/v/d. We called ob and state she hasn't been seen there since 2017. Allergies/Adverse Reactions: Allergies Cephaeline Allergy (Verified 04/24/20 21:03) Sulfa Drugs Adverse Reaction (Intermediate, Verified 04/24/20 21:03) Home Medications: Ambulatory Orders Duloxetine HCl 60 mg PO BID 02/22/18 HYDROcodone 10MG/APAP 325MG [[place] 10/325] 1 ea PO Q6HR PRN 02/22/18 Metoprolol Succinate [Metoprolol Succinate ER] 100 mg PO BID #30 tab 02/22/18 Pregabalin [Lyrica] 100 mg PO TID 02/22/18 Ziprasidone HCl 40 mg PO BID 02/22/18 Alprazolam [Xanax] 1 mg PO BID PRN 05/13/18 Baclofen 10 mg PO BID PRN 05/13/18 Cholecalciferol [Vitamin D-3] 5,000 unit PO DAILY 05/13/18 Cyclobenzaprine HCl [Cyclobenzaprine Hydrochlo] 10 mg PO BID PRN 05/13/18 Furosemide 40 mg PO DAILY 05/13/18 Levothyroxine Sodium 150 mcg PO DAILY 05/13/18 Naproxen Sodium 440 mg PO Q12H PRN 05/13/18 Omeprazole 20 mg PO DAILY 05/13/18 Potassium Chloride [Micro-K] 10 meq PO TID 05/13/18 Promethazine HCl 25 mg PO Q8HR PRN 05/13/18 Spironolactone 25 mg PO DAILY 05/13/18 Sumatriptan Succinate 50 mg PO DAILY PRN 05/13/18 diphenhydrAMINE HCL [Benadryl] 25 mg PO Q6H PRN 05/13/18 tiZANidine [Zanaflex] 4 mg PO BEDTIME 05/13/18 Ferrous Sulfate 324 mg PO DAILY #14 tab 04/24/20 Review of Systems - Review of Systems Constitutional: Denies: chills, fever, malaise EENTM: Denies: blurred vision, throat pain, mouth pain Respiratory: Denies: cough, short of breath, stridor Cardiology: Denies: chest pain, palpitations, syncope Gastrointestinal/Abdominal: Denies: abdominal pain, diarrhea, nausea Genitourinary: States: see HPI. Denies: dysuria, frequency, hematuria Musculoskeletal: Denies: joint pain, muscle pain Skin: Denies: dryness, lesions, rash Neurological: Denies: headache, numbness, weakness Endocrine: Denies: increased urine, unexplained weight gain, unexplained weight loss Hematologic/Lymphatic: Denies: blood clots, easy bleeding, easy bruising Past Medical History (General) - Patient Medical History Hx Seizures: No Hx Stroke: No Hx Dementia: No Hx Asthma: No Hx of COPD: No Hx Cardiac Disorders: Yes Hx Congestive Heart Failure: No Hx Pacemaker: No Hx Hypertension: Yes Hx Thyroid Disease: Yes Hx Diabetes: No Hx Gastroesophageal Reflux: No Hx Renal Disease: No Hx Cancer: No Hx of HIV: No Hx Hepatitis C: No Hx MRSA: No - Vaccination History Hx Tetanus, Diphtheria Vaccination: Yes Hx Influenza Vaccination: Yes Hx Pneumococcal Vaccination: No - Social History Hx Tobacco Use: No Hx Chewing Tobacco Use: No Hx Alcohol Use: No Hx Substance Use: No Hx Substance Use Treatment: No Hx Depression: No Hx Physical Abuse: No Hx Emotional Abuse: No Hx Suspected Abuse: No - Female History Hx Last Menstrual Period: 05/20/18 Patient : No Family Medical History - Family History Mother Family History: Unknown Hx Family Hypertension: Yes - parents Physical Exam - Physical Exam General Appearance: Alert, Comfortable, No apparent distress, Well Developed, Well Groomed, Well Hydrated, Well Nourished Eyes, Ears, Nose, Throat Exam: PERRL/EOMI, normal ENT inspection Neck: non-tender, full range of motion, supple, normal inspection Cardiovascular/Respiratory: regular rate, rhythm, no M/R/G, normal peripheral pulses, no JVD, normal breath sounds, no respiratory distress Gastrointestinal/Abdominal: normal bowel sounds, non tender, soft, no organomegaly, no pulsatile mass, abnormal bowel sounds Rectal Exam: deferred Pelvic Exam: external exam normal, speculum exam normal, bimanual exam normal, no cerv. 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, no motor/sensory deficits, alert, normal mood/affect, oriented x 3 Skin Exam: normal color, warm/dry Progress - Progress Progress: 04/24/20 21:32 04/24/20 20:23 IV Care:Saline Lock per Protoc QSHIFT Pelvic Exam Assist ONCE Sodium Chloride 0.9% (Flush) [Saline Flush Syringe] 10 ml IV PRN PRN Laboratory Results WBC 6.4 K/mm3 (4.8-10.8) 04/24/20 20:40 RBC 3.83 M/mm3 (4.20-5.40) L 04/24/20 20:40 Hgb 11.3 gm/dL (12.0-16.0) L 04/24/20 20:40 Hct 33.2 % (36.0-47.0) L 04/24/20 20:40 MCV 86.7 fl (81.0-99.0) 04/24/20 20:40 MCH 29.5 pg (27.0-31.0) 04/24/20 20:40 MCHC 34.0 g/dL (33.0-37.0) 04/24/20 20:40 RDW 14.1 % (11.5-14.5) 04/24/20 20:40 Plt Count 233 K/mm3 (130-400) 04/24/20 20:40 MPV 9.0 fl (7.40-10.4) 04/24/20 20:40 Absolute Neuts (auto) 3.60 K/uL (1.8-6.8) 04/24/20 20:40 Absolute Lymphs (auto) 2.00 K/uL (1.0-3.4) 04/24/20 20:40 Absolute Monos (auto) 0.60 K/uL (0.2-0.8) 04/24/20 20:40 Absolute Eos (auto) 0.20 K/uL (0.0-0.4) 04/24/20 20:40 Absolute Basos (auto) 0.10 K/uL (0.0-0.1) 04/24/20 20:40 Neutrophils % 55.8 % (42.0-78.0) 04/24/20 20:40 Lymphocytes % 31.8 % (20.0-50.0) 04/24/20 20:40 Monocytes % 9.0 % (2.0-9.0) 04/24/20 20:40 Eosinophils % 2.6 % (1.0-5.0) 04/24/20 20:40 Basophils % 0.8 % (0.0-2.0) 04/24/20 20:40 Sodium 141 mmol/L (135-145) 04/24/20 20:40 Potassium 3.3 mmol/L (3.6-5.0) L 04/24/20 20:40 Chloride 107 mmol/L (101-111) 04/24/20 20:40 Carbon Dioxide 23 mmol/L (21-31) 04/24/20 20:40 Anion Gap 14.3 (12-18) 04/24/20 20:40 BUN 7 mg/dL (7-18) 04/24/20 20:40 Creatinine 0.94 mg/dL (0.6-1.3) 04/24/20 20:40 BUN/Creatinine Ratio 7.4 (10-20) L 04/24/20 20:40 Random Glucose 90 mg/dL (70-105) 04/24/20 20:40 Serum Osmolality 278.8 mOsm/L (275-295) 04/24/20 20:40 Calcium 8.8 mg/dL (8.4-10.2) 04/24/20 20:40 Total Bilirubin 0.4 mg/dL (0.2-1.0) 04/24/20 20:40 AST 28 IU/L (10-42) 04/24/20 20:40 ALT 23 IU/L (10-60) 04/24/20 20:40 Alkaline Phosphatase 43 IU/L (42-121) 04/24/20 20:40 Serum Total Protein 6.1 gm/dL (6.4-8.2) L 04/24/20 20:40 Albumin 3.8 g/dl (3.2-5.5) 04/24/20 20:40 Globulin 2.3 gm/dL (2.3-3.5) 04/24/20 20:40 Albumin/Globulin Ratio 1.7 (1.1-1.9) 04/24/20 20:40 Beta HCG, Quant < 0.6 mIU/mL (0-4.9) 04/24/20 20:40 Urine Color Yellow (Yellow) 04/24/20 20:57 Urine Appearance Clear (Clear) 04/24/20 20:57 Urine pH 7.0 (4.5-7.8) 04/24/20 20:57 Ur Specific [place] 1.015 (1.005-1.030) 04/24/20 20:57 Urine Protein Trace mg/dL 04/24/20 20:57 Urine Glucose (UA) Negative mg/dL (Negative) 04/24/20 20:57 Urine Ketones Negative mg/dL (NEGATIVE) 04/24/20 20:57 Urine Blood Moderate (Negative) H 04/24/20 20:57 Urine Nitrite Negative 04/24/20 20:57 Urine Bilirubin Negative (NEGATIVE) 04/24/20 20:57 Urine Urobilinogen 0.2 mg/dL (0.2-1.0) 04/24/20 20:57 Ur Leukocyte Esterase Negative (Negative) 04/24/20 20:57 Urine RBC 5-10 /hpf H 04/24/20 20:57 Urine WBC 1-3 /hpf 04/24/20 20:57 Ur Epithelial Cells 0-1 /hpf 04/24/20 20:57 Amorphous Sediment 1+ 04/24/20 20:57 Urine Bacteria 0 04/24/20 20:57 Urine Opiates Screen Negative ng/mL (2000) 04/24/20 20:50 Urine Barbiturates Negative ng/mL (200) 04/24/20 20:50 Ur Phencyclidine Scrn Negative ng/mL (25) 04/24/20 20:50 U Amphetamin/Meth Scrn Negative ng/mL (1000) 04/24/20 20:50 U Benzodiazepines Scrn Negative ng/mL (200) 04/24/20 20:50 U Cocaine Metab Screen Negative ng/mL (300) 04/24/20 20:50 U Cannabinoids Screen Negative ng/mL (50) 04/24/20 20:50 - Results/Orders Results/Orders: bedside US shows no IUP. Fallopian tubes not dilated. The data reviewed when caring for this patient included: nurse notes, prior records, etc. The history and assessments from nurses notes were reviewed and considered, and the patient's home medication list was also reviewed and considered. My assessment and the results of testing completed here in the ED were discussed with the patient. All questions were answered, and they express understanding of my assessment and the plan. They have been instructed to return if their symptoms worsen, and have been asked to follow up with their primary care physician to recheck today's presenting complaint. return precautions given. I have reviewed medication, benefits, alternatives and side effects. Patient decided to proceed with medication. Razia Zaragoza DO #[id number] Departure - Departure Clinical Impression: Vaginal bleeding Anemia Qualifiers: Anemia type: unspecified type Qualified Code(s): D64.9 - Anemia, unspecified Time of Disposition: 21:30 Disposition: Discharge to Home or Self Care Departure Forms: ED Discharge - Pt. Copy, Patient Portal Self Enrollment Instructions: Anemia Caused by Low Iron, Heavy Periods (DC) Diet: resume usual diet Activity: increase activity as tolerated Prescriptions: Ferrous Sulfate 324 mg PO DAILY #14 tab Home Medications: Ambulatory Orders Duloxetine HCl 60 mg PO BID 02/22/18 HYDROcodone 10MG/APAP 325MG [[place] 10] 1 ea PO Q6HR PRN 02/22/18 Metoprolol Succinate [Metoprolol Succinate ER] 100 mg PO BID #30 tab 02/22/18 Pregabalin [Lyrica] 100 mg PO TID 02/22/18 Ziprasidone HCl 40 mg PO BID 02/22/18 Alprazolam [Xanax] 1 mg PO BID PRN 05/13/18 Baclofen 10 mg PO BID PRN 05/13/18 Cholecalciferol [Vitamin D-3] 5,000 unit PO DAILY 05/13/18 Cyclobenzaprine HCl [Cyclobenzaprine Hydrochlo] 10 mg PO BID PRN 05/13/18 Furosemide 40 mg PO DAILY 05/13/18 Levothyroxine Sodium 150 mcg PO DAILY 05/13/18 Naproxen Sodium 440 mg PO Q12H PRN 05/13/18 Omeprazole 20 mg PO DAILY 05/13/18 Potassium Chloride [Micro-K] 10 meq PO TID 05/13/18 Promethazine HCl 25 mg PO Q8HR PRN 05/13/18 Spironolactone 25 mg PO DAILY 05/13/18 Sumatriptan Succinate 50 mg PO DAILY PRN 05/13/18 diphenhydrAMINE HCL [Benadryl] 25 mg PO Q6H PRN 05/13/18 tiZANidine [Zanaflex] 4 mg PO BEDTIME 05/13/18 Ferrous Sulfate 324 mg PO DAILY #14 tab 04/24/20 Additional Instructions: Follow up with your primary care doctor.
[2020-04-24 21:19] VITALS: O2SAT 99
[2020-04-24 21:43] VITALS: BP 121/78; TEMP 97.1
== END 2020-04-24 21:51 | disposition home or self-care (01) ==
LOC: ER 19:57
DX: N93.9 Abnormal uterine and vaginal bleeding, unspecified (principal); D64.9 Anemia, unspecified; I51.9 Heart disease, unspecified; I10 Essential (primary) hypertension; E07.9 Disorder of thyroid, unspecified; Z32.02 Encounter for pregnancy test, result negative; Z79.899 Other long term (current) drug therapy; Z88.8 Allergy status to other drugs, medicaments and biological substances; Z88.2 Allergy status to sulfonamides